=== PATIENT | female | born 1985 | race Caucasian/White ===

== ENCOUNTER 2017-07-24 13:45 | Emergency (ER) | payer OTHER ==
[~2017-07-24] VITALS: Ht 157.5 cm; Wt 69.9 kg
[2017-07-24 14:07] VITALS: BP 123/65; PULSE 60; RESP 16; TEMP 98.2; O2SAT 96
[2017-07-24] MEDS ORDERED: CHOL400D2 PO (14:20)
[2017-07-24] MEDS ORDERED: PREN29TA PO (14:20)
[2017-07-24] MEDS ORDERED: ARMO90TA PO (14:20)
--- NOTE | 2017-07-24 14:46 | PD ---
HPI Chief Complaint: Related Problem Time Seen by Provider: 14:44 Travel History International Travel<30 days: No Contact w/Intl Traveler<30days: No Traveled to known affect area: No History of Present Illness HPI Patient presents with complaints of mild vaginal spotting 1 day. Reports that she is 7 weeks gravid. Compliant with vitamins. . Denies vaginal discharge. Describes spotting as dark brown in color. No history of miscarriages. Denies sexual activity. Denies any products of conception. PFSH Past Medical History Heart Rhythm Problems: Yes (heart murm) Diminished Hearing: No Thyroid Disease: Yes Tetanus Vaccination: > 5 Years Influenza Vaccination: Yes ?: LMP: 05/27/17 Past Surgical History Surgical History: No Previous Surgery Section: Yes (2008) Social History Alcohol Use: No Tobacco Use: No Substance Use: No Allergies-Medications (Allergen,Severity, Reaction): Coded Allergies: levothyroxine (Verified Allergy, Intermediate, hives, 07/24/17) levothyroxine sodium (Verified Allergy, Intermediate, rash, 07/24/17) lidocaine (Verified Allergy, Intermediate, chest tightness, pain , anxiety , 07/24/17) menthol (Verified Allergy, Intermediate, chest tightness, pain , anxiety, 07/24/17) Reported Meds & Prescriptions Reported Meds & Active Scripts Active Reported Plus Iron 29-1 mg ( Vit-Iron Carbonyl) 29 Mg Iron-1 Mg Tab 1 Tab PO DAILY Vitamin D (Cholecalciferol) 400 Unit/Ml Drops 400 Units PO DAILY Sidney Thyroid (Thyroid) 90 Mg Tab 90 Mg PO DAILY Review of Systems General / Constitutional: No: Fever Eyes: No: Visual changes HENT: No: Headaches Cardiovascular: No: Chest Pain or Discomfort Respiratory: No: Shortness of Breath Gastrointestinal: No: Abdominal Pain Genitourinary: Positive: Vaginal Bleeding, No: Dysuria Musculoskeletal: No: Pain Skin: No Rash Neurologic: No: Weakness Psychiatric: No: Depression Endocrine: No: Polydipsia Hematologic/Lymphatic: No: Easy Bruising Physical Exam Narrative GENERAL: Well-nourished, well-developed patient. SKIN: Focused skin assessment warm/dry. HEAD: Normocephalic. EYES: No scleral icterus. No injection or drainage. NECK: Supple, trachea midline. No JVD or lymphadenopathy. CARDIOVASCULAR: Regular rate and rhythm without murmurs, gallops, or rubs. RESPIRATORY: Breath sounds equal bilaterally. No accessory muscle use. GASTROINTESTINAL: Abdomen soft, non-tender, nondistended. MUSCULOSKELETAL: No cyanosis, or edema. BACK: Nontender without obvious deformity. No CVA tenderness. Vaginal exam, vaginal mucosa pink moist and healthy in appearance there is indication of old blood in the vaginal vault as well as some minimal bright red blood per the os, nonpulsatile Data Data Last Documented VS Vital Signs Date Time Temp Pulse Resp B/P (MAP) Pulse Ox O2 Delivery O2 Flow Rate FiO2 07/24/17 14:07 98.2 60 16 123/65 (84) 96 Orders Orders Wet Prep Profile (07/24/17 15:14) Labs Laboratory Tests Test 07/24/17 15:10 Clue Cells (Wet Prep) NONE SEEN Vaginal Trichomonas (Wet Prep) NONE SEEN Vaginal Yeast (Wet Prep) NONE SEEN MDM Medical Decision Making Medical Screen Exam Complete: Yes Emergency Medical Condition: Yes Differential Diagnosis Vaginal spotting, placenta previa, threatened miscarriage Narrative Course Assessment plan discussed the patient at bedside. Patient declined exam until her could be present. Wet prep is negative. Diagnosis Primary Impression: Threatened miscarriage in early Patient Instructions: General Instructions Additional Instructions: Encouraged rest and fluids, encouraged Tylenol for discomfort, encouraged to continue vitamin. Follow-up with [facility]. Return to emerge from with any onset of new symptoms. Med/Other Pt SpecificInfo: No Meds Exist/No RX given Disposition: 01 DISCHARGE HOME Condition: Good Samson Torres MD Jul 24, 2017 14:46
== END 2017-07-24 16:56 | disposition home or self-care (01) ==
LOC: PHED 13:45
DX: O20.0 Threatened abortion (principal); O99.281 Endocrine, nutritional and metabolic diseases complicating pregnancy, first trimester; E07.9 Disorder of thyroid, unspecified; Z79.899 Other long term (current) drug therapy; Z88.8 Allergy status to other drugs, medicaments and biological substances
CPT/HCPCS: 87210; 99284

== ENCOUNTER 2017-09-16 13:51 | Day surgery (SDC) | payer OTHER ==
[~2017-09-16 13:51] MED LIST: ARMO90TA PO; CHOL400D2 PO; PREN29TA PO
--- NOTE | 2017-09-17 15:09 | RADRPT ---
EXAM DATE: 09/16/2017 6:38 PM EDT AGE/SEX: 32 years / Female INDICATIONS: CONSULT FOR PULMONARY AVM HISTORY OF PRESENT ILLNESS: TEMPERATURE: 98.2 HEART RATE: 78 BLOOD PRESSURE: 112/68 RESPIRATIONS: 18 OXIMETRY: 98 PNEUMONIA VACCINE: NO MEDICAL/SURGICAL HISTORY: Hypothyroidism. MISCARRIAGE 06/2017 section. SOCIAL HISTORY: No alcohol use. SMOKING HISTORY: ALLERGIES: SYNTHROID,TIROSINT,LEVOTHYROXINE MEDICATIONS: ARMOUR THYROID 90MG ALTERNATE WITH 120 MG q.d. MVI q.d. ASA 81MG q.d. FLONASE q.d. PHYSICAL EXAM: Young, healthy female in no acute distress. IMAGING STUDIES: Patient's CTA of the chest from 09-13-2017 was reviewed. CONSULTATION: There is a 2.1 x 1.4 cm left pulmonary AVM. I discussed the findings with the patient including detai led anatomic hand drawings of the AVM with relevant anatomy. During this discussion, the patient ceci me very agitated, explain that she works here at [employer] in [facility] and just wanted to know exactly what I planned to do with no additional details. As I explained the procedure, patient became visibly upse t and began to cry. As we discussed potential complications such as inadvertent embolization/stroke p atient became more upset. At this point, I felt it would be prudent to refer the patient to a [facility] for definitive endovascular treatment of the pulmonary AVM. Patient agreed with referral. Discussed the case with Dr. Brody Chi from interventional department. Received a phone call from Dr. Chi's nurse practitioner, Brissa Petty NP. Mrs. Petty asked that we forward an order and all relevant documents to the interventional department to begin the referral process. We'll als o ask the patient to pickup a copy of her CT[facility] from [facility]. ASSESSMENT: 1. Left-sided pulmonary AVM appears to be amenable to endovascular repair. 2. After discussing the treatment plan with the patient, we both feel it would be prudent to refer t o for intervention. Referral has been initiated. PLAN: Referral to [facility] for left pulmonary AVM embolization. TIME SPENT: 15 minutes. Electronically signed by: Kimo Paez MD 09/17/2017 3:07 PM EDT
== END 2017-09-16 15:30 | disposition home or self-care (01) ==
LOC: HROP 13:51 → HRIP 13:56 → HROP 15:30
PROVIDERS: ATTEND Internal Medicine
DX: Q25.72 Congenital pulmonary arteriovenous malformation (principal); E03.9 Hypothyroidism, unspecified